=== PATIENT | female | born 1965 | race Caucasian/White ===

== ENCOUNTER → 2017-07-23 | Outpatient (CLI) | payer BC ==
--- NOTE | 2017-07-23 11:38 | WWHP ---
[facility] - HISTORY AND PHYSICAL DATE OF SERVICE: 07/23/2017 CHIEF COMPLAINT: The patient is here for her routine gynecologic exam and mammogram. HPI: This is a 51-year-old G3, P3 with an LMP of 05/2017. She states her periods have been slightly irregular during the past year, but have been mostly every month and during the past 6 months. She has gone up to 5 months without a period prior to that time. She denies any significant hot flashes, but does have mild hot flashes periodically. Her is status post vasectomy. PAST MEDICAL HISTORY: Chronic hypertension, seasonal allergies, and history of a kidney stone in the past. MEDICATIONS: 1. Benicar 5 mg daily. 2. Xanax 0.25 mg p.r.n. 3. Flonase daily at. ALLERGIES: SULFA. PAST SURGICAL HISTORY: Laparoscopic cholecystectomy 2012, endometrial ablation 2014, colonoscopy in 06/2017. She was advised to repeat this after 5 years. 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 She has no history of STDs. SOCIAL HISTORY: She denies tobacco, alcohol, and drug use. 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 FAMILY HISTORY: Unchanged from the 2015 H and P. REVIEW OF SYSTEMS: She has gained 4 pounds over the last year. She denies respiratory, cardiac or GI problems. PHYSICAL EXAM: Blood pressure 164/94, height 5 feet 5 inches, weight 210 pounds, BMI 35, temperature 96.4, pulse 87. This is a well-developed, heavyset white female, who is alert and oriented x3, in no acute distress. HEENT is within normal limits. NECK: Supple without mass or thyromegaly. CHEST AND LUNGS: Clear to auscultation. HEART: Regular rate and rhythm. Breasts are without mass or discharge. Axillary exam is negative for adenopathy. BACK: Negative for CVA tenderness. ABDOMEN: Mildly obese, soft, nontender, without palpable masses. PELVIC EXAM: Normal external genitalia. Cervix appears multiparous without lesions. Vagina appears normal. There is no evidence of prolapse. The uterus is multiparous, mid-position and nongravid size. There are no palpable adnexal masses or tenderness. Rectovaginal exam is negative for mass or tenderness and is negative for occult blood. EXTREMITIES: Nontender. IMPRESSION: 1. A 51-year-old female whose is status post vasectomy with normal gynecologic exam. 2. Probable perimenopause with intermittent menstrual irregularity. 3. Elevated blood pressure with history of chronic hypertension. PLAN: 1. Pap smear was performed. 2. Self breast examination was discussed. 3. Screening mammogram will be done today. 4. We have discussed her elevated blood pressure. She does do home blood pressure checks. I have recommended that she alternate the times of day when she does this since she has only been doing it at the calm times during the day. She will follow up with her primary care physician for blood pressure elevations. 5. Osteoporosis prevention was discussed. 6. She will keep a menstrual calendar and call if she is having menstrual problems or bleeding after 12 months of amenorrhea. 7. She will return in one year and p.r.n. JUDAH / SUZAN: [id number] /
--- NOTE | 2017-07-24 13:05 | MM ---
Reason for exam: screening (asymptomatic). Last mammogram was performed 1 year and 2 months ago. History: Took hormonal contraceptives for 8 years beginning at age 22. Physical Findings: A clinical breast exam by your physician is recommended on an annual basis and results should be correlated with mammographic findings. MG 3D Screening Mammo W/Cad Bilateral CC and MLO view(s) were taken. Prior study comparison: May 14, 2016, bilateral MG screening mammo w CAD. November 09, 2014, bilateral MG screening mammo w CAD. The breast tissue is heterogeneously dense. This may lower the sensitivity of mammography. There is no discrete abnormality. No significant changes when compared with prior studies. ASSESSMENT: Negative, BI-RAD 1 RECOMMENDATION: Routine screening mammogram of both breasts in 1 year.
== END | disposition home or self-care (01) ==
LOC: WWCWWP 09:47
PROVIDERS: ATTEND Obstetrics & Gynecology
DX: Z12.31 Encounter for screening mammogram for malignant neoplasm of breast (principal)
CPT/HCPCS: 77063; 77067

== ENCOUNTER → 2018-09-16 | Outpatient (CLI) | payer BC ==
[2018-09-16 08:17] VITALS: BP 188/123; PULSE 85; RESP 18; TEMP 97.9; BMI 34.4
--- NOTE | 2018-09-16 08:56 | P.HPOB ---
History of Present Illness H&P Date: 09/16/18 Chief Complaint: The patient is here for her routine gynecologic exam and ma mmogram. This is a 53-year-old G3 PIII with an LMP of December 2017. The patient states her menstrual periods became less frequent during the 12 months prior to her LMP. Her LPMP was at the end of 2017 and she believes she had only about 3 periods during the year prior to the LMP. The LMP was light and prolonged and lasted about 3 weeks. She has not had any bleeding since then. She has occasional mild warm flashes which are not bothersome. Review of Systems The patient has lost 3 pounds over the last year. She denies respiratory, cardiac, or G.I. problems. Past Medical History Past Medical History: Hypertension Additional Past Medical History / Comment(s): Seasonal allergies and history of kidney stone in the past. 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 History of hypermenorrhea improved with endometrial ablation. History of Any Multi-Drug Resistant Organisms: None Reported Past Surgical History: Cholecystectomy, Uterine Ablation Additional Past Surgical History / Comment(s): Endometrial ablation 2014. Co lonoscopy 2018(next 5 yrs). 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 - Past Family History Father Family Medical History: Cancer Additional Family Medical History / Comment(s): Bladder cancer and basal cell skin cancer. Medications and Allergies Home Medications Medication Instructions Recorded Confirmed Type ALPRAZolam [Xanax] 0.25 mg PO HS PRN 09/16/18 09/16/18 History Olmesartan [Benicar] 20 mg PO HS 09/16/18 09/16/18 History Allergies Allergy/AdvReac Type Severity Reaction Status Date / Time Sulfa (Sulfonamide AdvReac Severe hives Unverified 09/16/18 08:11 Antibiotics) Exam Vital Signs Temp Pulse Resp BP Pulse Ox 09/16/18 08:13 97.9 F 85 18 188/123 99 Intake and Output 09/15/18 09/16/18 09/16/18 22:59 06:59 14:59 Other: Weight 93.894 kg Repeat blood pressure 158/92. Height 5'5", weight 207 pounds, BMI 34.4. This is a well-developed well-nourished white female who is alert and oriented times 3 in no acute distress. HEENT: Within normal limits. NECK: Supple without mass or thyromegaly. CHEST AND LUNGS: Clear to auscultation. HEART: Regular rate and rhythm. BREASTS: Are without mass or discharge. AXILLARY EXAM: Negative for adenopathy. BACK: Negative for CVA tenderness. ABDOMEN: Soft, nontender, without palpable masses. PELVIC EXAM: Normal external genitalia. Cervix and vagina appear normal. There is no unusual discharge. There is no evidence of prolapse. The uterus is midposition, nongravid size and nontender. There are no palpable adnexal masses or tenderness. RECTAL EXAM: rectovaginal exam is negative for mass or tenderness and is nega tive for occult blood. EXTREMITIES: Nontender. IMPRESSION: 1. 53-year-old perimenopausal female with oligomenorrhea and normal gynecologic exam. 2. Elevated blood pressure with history of chronic hypertension. PLAN: 1. Pap smear was deferred since she had a normal one on 07/23/2017. 2. Self breast awareness was discussed with the patient. 3. Screening mammogram will be done today. 4. She has been checking her blood pressure at home on a regular basis and has been in the 120s over 80s. She will continue to check her own blood pressure and follow up with her primary care physician for blood pressure elevations. 5. Osteoporosis prevention was discussed. I have stressed the importance of adequate calcium, vitamin D and regular exercise. Recommended amounts of calcium and vitamin D were also discussed. 6. She will continue to keep the menstrual calendar. Chill, she is having menstrual problems or bleeding after 12 months of amenorrhea. 7.She was advised to return in one year for her annual well woman exam.
--- NOTE | 2018-09-17 11:16 | MM ---
Reason for exam: screening (asymptomatic). Last mammogram was performed 1 year and 2 months ago. History: Took hormonal contraceptives for 8 years beginning at age 22. Physical Findings: A clinical breast exam by your physician is recommended on an annual basis and results should be correlated with mammographic findings. MG 3D Screening Mammo W/Cad Bilateral CC and MLO view(s) were taken. Prior study comparison: July 23, 2017, bilateral MG 3d screening mammo w/cad. May 14, 2016, bilateral MG screening mammo w CAD. There are scattered fibroglandular densities. No significant changes when compared with prior studies. ASSESSMENT: Benign, BI-RAD 2 RECOMMENDATION: Routine screening mammogram of both breasts in 1 year.
== END ==
LOC: WWCWWP 07:50
PROVIDERS: ATTEND Obstetrics & Gynecology
DX: Z12.31 Encounter for screening mammogram for malignant neoplasm of breast (principal)
CPT/HCPCS: 77063; 77067

== ENCOUNTER 2018-11-28 19:20 | Emergency (ER) | payer BC ==
[2018-11-28] MEDS ORDERED: KETOROLAC 30 MG/ML 1 ML VIAL IM STA (19:44)
--- NOTE | 2018-11-28 20:11 | XR ---
EXAMINATION TYPE: XR knee complete RT DATE OF EXAM: 11/28/2018 COMPARISON: NONE HISTORY: Knee pain TECHNIQUE: 3 views FINDINGS: I see no fracture nor dislocation. Joint spaces are normal. There is no sign of any joint e ffusion. IMPRESSION: Negative right knee exam.
--- NOTE | 2018-11-28 20:13 | ED ---
General Adult HPI - General Chief complaint: Extremity Injury, Lower Stated complaint: Leg injury Time Seen by Provider: 11/28/18 19:38 Source: patient Mode of arrival: ambulatory Limitations: no limitations - History of Present Illness Initial comments: 53-year-old female patient presents to the emergency department today for evaluation of right knee pain and swelling. 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 Patient states over the last 24 hours the knee has become more swollen and painful. States that she has increased pain with attempting to flex the knee. States she is able to bear weight and is able to walk as long she keeps her knee straight. She denies any numbness or tingling to the leg. States she has been having any issues for the last several months and does have an appointment with clinical appeals specialist on Friday. She denies any previous known injury. Patient denies any headache, neck pain, back pain, chest pain, shortness of breath, dizziness, weakness, abdominal pain, nausea, vomiting, or difficulties with bowel movements or urination. - Related Data Home Medications Medication Instructions Recorded Confirmed ALPRAZolam [Xanax] 0.25 mg PO HS PRN 09/16/18 09/16/18 Olmesartan [Benicar] 20 mg PO HS 09/16/18 09/16/18 Previous Rx's Medication Instructions Recorded Naproxen [Naprosyn] 500 mg PO Q12HR #30 tab 11/28/18 Allergies Allergy/AdvReac Type Severity Reaction Status Date / Time Sulfa (Sulfonamide AdvReac Severe hives Verified 11/28/18 19:36 Antibiotics) Review of Systems ROS Statement: Those systems with pertinent positive or pertinent negative responses have been documented in the HPI. ROS Other: All systems not noted in ROS Statement are negative. Past Medical History Past Medical History: Hypertension Additional Past Medical History / Comment(s): Seasonal allergies and history of kidney stone in the past. 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 History of hypermenorrhea improved with endometrial ablation. History of Any Multi-Drug Resistant Organisms: None Reported Past Surgical History: Cholecystectomy, Uterine Ablation Additional Past Surgical History / Comment(s): Endometrial ablation 2014. Colonoscopy 2018(next 5 yrs). Past Psychological History: No Psychological Hx Reported Smoking Status: Never smoker Past Alcohol Use History: None Reported Past Drug Use History: None Reported - Past Family History Father Family Medical History: Cancer Additional Family Medical History / Comment(s): Bladder cancer and basal cell skin cancer. General Exam Limitations: no limitations General appearance: alert, in no apparent distress, other (This is a well- developed, well-nourished adult female patient in no acute distress. Vital signs upon presentation are temperature 99.0F, pulse 91, respirations 18, blood pressure 210/104, pulse ox 99% on room air.) Respiratory exam: Present: normal lung sounds bilaterally. Absent: respiratory distress, wheezes, rales, rhonchi, stridor Cardiovascular Exam: Present: regular rate, normal rhythm, normal heart sounds. Absent: systolic murmur, diastolic murmur, rubs, gallop, clicks GI/Abdominal exam: Present: soft, normal bowel sounds. Absent: distended, tenderness, guarding, rebound, rigid Extremities exam: Present: full ROM, normal capillary refill, other. Absent: normal inspection, tenderness, pedal edema, joint swelling (Swelling surrounding the right knee. Skin is pink, warm, dry. Cap refills less than 3 seconds. Pedal and posttibial pulses 2+ and equal bilaterally.), calf tenderness Neurological exam: Present: alert, oriented X3, CN II-XII intact Psychiatric exam: Present: normal affect, normal mood Skin exam: Present: warm, dry, intact, normal color. Absent: rash Course Vital Signs 11/28/18 19:33 Temperature 99.0 F Pulse Rate 91 Respiratory 18 Rate Blood Pressure 210/104 O2 Sat by Pulse 99 Oximetry Medical Decision Making - Medical Decision Making 53-year-old female patient presents to the emergency department today for evaluation of right knee pain. States she's been having problems with the knee for the last few months however yesterday stepped sideways felt a snapping sensation. Patient states she's had increased pain and swelling since. X-ray was negative. The emergency department. Neurovascular status is intact. She denies any dislocation type injury. She'll be discharged home with Vern wrap in place. She'll be given naproxen for pain control. She is instructed to rest, elevate the knee. She is instructed to follow-up with orthopedics if she has planned on Friday. Return parameters discussed in detail. She verbalizes understanding and agrees this plan. - Radiology Data Radiology results: report reviewed, image reviewed 3 views of the right knee is obtained. Report was reviewed in its entirety. Impression by Dr. Alan shows negative right knee exam. Disposition Clinical Impression: Strain of right knee Disposition: HOME SELF-CARE Condition: Good Instructions (If sedation given, give patient instructions): Knee Pain (ED) Additional Instructions: Wear vern wrap for comfort and support. Take medication as directed. Rest and elevate the knee, apply ice 20 minutes at a time at least 4 times per day. Keep appointment with your clinical appeals specialist as you have planned. Return to the emergency department immediately for any new, worsening, or concerning symptoms. Prescriptions: Naproxen [Naprosyn] 500 mg PO Q12HR #30 tab Is patient prescribed a controlled substance at d/c from ED?: No Referrals: Antonio Estevez MD [Primary Care Provider] - 1-2 days Time of Disposition: 20:26
[2018-11-28 20:50] VITALS: TEMP 98.4
[2018-11-28 20:51] VITALS: BP 191/102; PULSE 83; RESP 19
== END 2018-11-28 20:53 | disposition home or self-care (01) ==
LOC: EC 19:20
DX: S86.911A Strain of unspecified muscle(s) and tendon(s) at lower leg level, right leg, initial encounter (principal); I10 Essential (primary) hypertension; Z79.899 Other long term (current) drug therapy; Z88.2 Allergy status to sulfonamides; Y93.68 Activity, volleyball (beach) (court)
CPT/HCPCS: 73562; 99283; 96372; J1885

== ENCOUNTER → 2020-06-20 | Outpatient (CLI) | payer BC ==
[2020-06-20 09:39] VITALS: BP 180/122; PULSE 85; RESP 20; TEMP 98.1
--- NOTE | 2020-06-20 10:20 | P.HPOB ---
History of Present Illness H&P Date: 06/20/20 Chief Complaint: The patient is here for her routine gynecologic exam and ma mmogram. This is a 54-year-old with an LMP of October 2019. The patient's is status post vasectomy. She states her menstrual periods continue to become less frequent. She has occasional hot flashes which are not consistent and not very severe. She believes vitamin D supplements seem to make hot flashes worse. She is otherwise without complaints. Review of Systems The patient has gained 8 pounds over the last year. She denies respiratory, cardiac, or G.I. problems. Past Medical History Past Medical History: Hypertension Additional Past Medical History / Comment(s): Seasonal allergies and history of kidney stone in the past. 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 History of Any Multi-Drug Resistant Organisms: None Reported Past Surgical History: Cholecystectomy, Uterine Ablation Additional Past Surgical History / Comment(s): Endometrial ablation 2014. Colonoscopy 2018(next 5 yrs). 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 - Past Family History Father Family Medical History: Cancer Additional Family Medical History / Comment(s): Bladder cancer and basal cell skin cancer. Son(s) Family Medical History: Cancer Additional Family Medical History / Comment(s): Lymphoma. Medications and Allergies Home Medications Medication Instructions Recorded Confirmed Type ALPRAZolam [Xanax] 0.25 mg PO HS PRN 09/16/18 06/20/20 History Olmesartan [Benicar] 20 mg PO HS 09/16/18 06/20/20 History Fluticasone Nasal [place] [Flonase 2 spr EA NOSTRIL DAILY 06/20/20 06/20/20 History Nasal [place]] Loratadine [Claritin] 10 mg PO DAILY 06/20/20 06/20/20 History Allergies Allergy/AdvReac Type Severity Reaction Status Date / Time Sulfa (Sulfonamide AdvReac Severe hives Verified 06/20/20 09:31 Antibiotics) Exam Vital Signs Temp Pulse Resp BP Pulse Ox 06/20/20 09:33 98.1 F 85 20 180/122 100 Intake and Output 06/19/20 06/20/20 06/20/20 22:59 06:59 14:59 Other: Weight 97.522 kg Repeat blood pressure from the right arm: 152/98. Height 5 feet 6 inches, weight 215 pounds, BMI 34.7. This is a well-developed well-nourished white female who is alert and oriented times 3 in no acute distress. HEENT: Within normal limits. NECK: Supple without mass or thyromegaly. CHEST AND LUNGS: Clear to auscultation. HEART: Regular rate and rhythm. BREASTS: Are without mass or discharge. AXILLARY EXAM: Negative for adenopathy. BACK: Negative for CVA tenderness. ABDOMEN: Soft, nontender, without palpable masses. PELVIC EXAM: Normal external genitalia. Cervix and vagina appear normal. There is no unusual discharge. There is no evidence of prolapse. The uterus is midposition, nongravid size and nontender. There are no palpable adnexal masses or tenderness. RECTAL EXAM: Rectovaginal exam is negative for mass or tenderness and is negative for occult blood. EXTREMITIES: Nontender. IMPRESSION: 1. 54-year-old perimenopausal female with oligomenorrhea and intermittent mild vasomotor symptoms whose is status post vasectomy with normal gynecologic exam 2. Elevated blood pressure with history of chronic hypertension. PLAN: 1. Pap smear cotest was performed. 2. Self breast awareness was discussed with the patient. 3. Screening mammogram will be done today. 4. We have discussed her elevated blood pressure. I have recommended that she check her blood pressure at home on a regular basis since she does have a blood pressure cuff. She will keep a log of her blood pressures and follow up with her PCP for blood pressure elevations. 5. Osteoporosis prevention was discussed. I have stressed the importance of adequate calcium, vitamin D and regular exercise. Recommended amounts of calcium and vitamin D were also discussed. 6. She will keep a menstrual calendar and call if she is having menstrual problems or if she has vaginal bleeding after 12 months of amenorrhea. 7. She was advised to return in one year for her annual well woman exam.
--- NOTE | 2020-06-21 13:25 | MM ---
Reason for exam: screening (asymptomatic). Last mammogram was performed 1 year and 9 months ago. History: Patient is postmenopausal. Took hormonal contraceptives for 8 years beginning at age 22. Physical Findings: A clinical breast exam by your physician is recommended on an annual basis and results should be correlated with mammographic findings. MG 3D Screening Mammo W/Cad Bilateral CC and MLO view(s) were taken. Prior study comparison: September 16, 2018, bilateral MG 3d screening mammo w/cad. July 23, 2017, bilateral MG 3d screening mammo w/cad. There are scattered fibroglandular densities. There are benign appearing round, grouped calcifications in the left breast. There is no discrete abnormality. ASSESSMENT: Benign, BI-RAD 2 RECOMMENDATION: Routine screening mammogram of both breasts in 1 year.
--- NOTE | 2020-06-28 12:43 | P.PN ---
Progress Note - Text Progress Note Date: 06/28/20 OUTPATIENT FOLLOW-UP NOTE TEST(S)/RESULTS: test results from 06/20/2020 include negative Pap smear cotest and benign mammogram. METHOD OF NOTIFICATION: the patient was notified by phone. PATIENT COMMENTS: the patient is happy to hear these results. DIAGNOSIS: negative Pap smear cotest and benign mammogram. DISCUSSION: PLAN: the patient is to return in one year for her annual well woman exam.
== END | disposition home or self-care (01) ==
LOC: WWCWWP 09:21
PROVIDERS: ATTEND Obstetrics & Gynecology
DX: Z12.31 Encounter for screening mammogram for malignant neoplasm of breast (principal)
CPT/HCPCS: 77063; 77067

== ENCOUNTER → 2021-09-19 | Outpatient (CLI) | payer BC ==
[2021-09-19 08:08] VITALS: BP 180/98; PULSE 106; RESP 17; TEMP 98.1
--- NOTE | 2021-09-19 08:43 | P.HPOB ---
History of Present Illness H&P Date: 09/19/21 Chief Complaint: The patient is here for her routine gynecologic exam and ma mmogram. This is a 56-year-old with an LMP of 10/2019. The patient states she has less hot flashes and they are not bothersome. She is without gynecologic complaints. She denies any postmenopausal bleeding. Review of Systems The patient has lost 2 pounds over the last year. She denies respiratory, cardiac, or G.I. problems. Past Medical History Past Medical History: Hypertension Additional Past Medical History / Comment(s): Seasonal allergies and history of kidney stone in the past. 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 History of Any Multi-Drug Resistant Organisms: None Reported Past Surgical History: Cholecystectomy, Uterine Ablation Additional Past Surgical History / Comment(s): Endometrial ablation 2014. Colonoscopy 2018(next 5 yrs). 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 - Past Family History Father Family Medical History: Cancer Additional Family Medical History / Comment(s): Bladder cancer and basal cell skin cancer. Son(s) Family Medical History: Cancer Additional Family Medical History / Comment(s): Lymphoma. Medications and Allergies Home Medications Medication Instructions Recorded Confirmed Type ALPRAZolam [Xanax] 0.25 mg PO HS PRN 09/16/18 06/20/20 History Olmesartan [Benicar] 20 mg PO HS 09/16/18 06/20/20 History Fluticasone Nasal [place] [Flonase 2 spr EA NOSTRIL DAILY 06/20/20 06/20/20 History Nasal [place]] Loratadine [Claritin] 10 mg PO DAILY 06/20/20 06/20/20 History Allergies Allergy/AdvReac Type Severity Reaction Status Date / Time Sulfa (Sulfonamide AdvReac Severe hives Verified 09/19/21 08:03 Antibiotics) Exam Vital Signs Temp Pulse Resp BP Pulse Ox 09/19/21 08:04 98.1 F 106 H 17 180/98 95 Intake and Output 09/18/21 09/19/21 09/19/21 22:59 06:59 14:59 Other: Weight 96.615 kg Height 5 feet 5 inches, weight 213 pounds, BMI 35.4. This is a well-developed well-nourished white female who is alert and oriented times 3 in no acute distress. HEENT: Within normal limits. NECK: Supple without mass or thyromegaly. CHEST AND LUNGS: Clear to auscultation. HEART: Mild tachycardia with regular rhythm. BREASTS: Are without mass or discharge. AXILLARY EXAM: Negative for adenopathy. BACK: Negative for CVA tenderness. ABDOMEN: Soft, nontender, without palpable masses. PELVIC EXAM: Normal external genitalia with mild atrophy. Cervix and vagina appear normal with minimal atrophy. There is no unusual discharge. There is no evidence of prolapse. The uterus is midposition, nongravid size and nontender. There are no palpable adnexal masses or tenderness. RECTAL EXAM: Rectovaginal exam is negative for mass or tenderness and is negative for occult blood. EXTREMITIES: Nontender. IMPRESSION: 1. 56-year-old menopausal female with normal gynecologic exam. 2. Elevated blood pressure with history of chronic hypertension. PLAN: 1. Pap smear was deferred since she had a normal Pap smear cotest on 06/20/2020. 2. Self breast awareness was discussed with the patient. We have also discussed symptoms associated with inflammatory breast cancer. 3. Screening mammogram will be done today. 4. Osteoporosis prevention was discussed. 5. We have discussed her elevated blood pressure. I have stressed the importance of regular blood pressure checks. I have recommended home blood pressure checks and I have recommended that she follow up with her PCP regarding elevated blood pressures. We have also discussed the importance of regular exercise and low sodium diet. 6. She has completed her Covid vaccination series and has received a booster. 7. Now that she has been amenorrheic for more than one year, she understands that any vaginal bleeding should be considered abnormal and she should notify me if this happens. 8. She was advised to return in one year for her annual well woman exam.
--- NOTE | 2021-09-20 13:09 | MM ---
Reason for exam: screening (asymptomatic). Last mammogram was performed 1 year and 3 months ago. History: Patient is postmenopausal. Took hormonal contraceptives for 8 years beginning at age 22. Physical Findings: A clinical breast exam by your physician is recommended on an annual basis and results should be correlated with mammographic findings. MG 3D Screening Mammo W/Cad Bilateral CC and MLO view(s) were taken. Prior study comparison: June 20, 2020, bilateral MG 3d screening mammo w/cad. September 16, 2018, bilateral MG 3d screening mammo w/cad. There are benign appearing round calcifications bilaterally. There is chronic nodularity in the left breast. New indistinct grouped calcifications left upper outer quadrant middle depth. ASSESSMENT: Incomplete: need additional imaging evaluation, BI-RAD 0 RECOMMENDATION: Special view mammogram of the left breast. [facility] will attempt to contact patient to return for supplemental views.
== END ==
LOC: WWCWWP 07:53
PROVIDERS: ATTEND Obstetrics & Gynecology
DX: Z12.31 Encounter for screening mammogram for malignant neoplasm of breast (principal); Z01.419 Encounter for gynecological examination (general) (routine) without abnormal findings; I10 Essential (primary) hypertension; Z78.0 Asymptomatic menopausal state; Z88.2 Allergy status to sulfonamides
CPT/HCPCS: 77063; 77067

== ENCOUNTER → 2021-09-21 | Outpatient (CLI) | payer BC ==
--- NOTE | 2021-09-24 09:29 | MM ---
Reason for exam: additional evaluation requested from abnormal screening. Last mammogram was performed less than 1 month ago. History: Patient is postmenopausal. Took hormonal contraceptives for 8 years beginning at age 22. Physical Findings: A clinical breast exam by your physician is recommended on an annual basis and results should be correlated with mammographic findings. MG 3D Work Up W/Cad LT ML with magnification, CC with magnification, and ML view(s) were taken of the left breast. Prior study comparison: September 19, 2021, bilateral MG 3d screening mammo w/cad. June 20, 2020, bilateral MG 3d screening mammo w/cad. There are scattered fibroglandular densities. There is no discrete abnormality. ASSESSMENT: Benign, BI-RAD 2 RECOMMENDATION: Return to routine screening mammogram schedule for both breasts.
== END | disposition home or self-care (01) ==
LOC: RADMAMWWP 14:51
PROVIDERS: ATTEND Obstetrics & Gynecology
DX: R92.8 Other abnormal and inconclusive findings on diagnostic imaging of breast (principal); Z78.0 Asymptomatic menopausal state
CPT/HCPCS: 77061; 77065

== ENCOUNTER → 2022-11-13 | Outpatient (CLI) | payer BC ==
[2022-11-13 10:47] VITALS: PULSE 99; RESP 16; TEMP 98
--- NOTE | 2022-11-13 11:47 | P.HPOB ---
History of Present Illness H&P Date: 11/13/22 Chief Complaint: The patient is here for her routine gynecologic exam and ma mmogram. This is a 57-year-old with an LMP of 2019. The patient noticed a slight skin change at the lateral aspect of the left breast and was wondering if this was the orange peel kind of changes noticed with inflammatory breast cancer. She is otherwise without complaints and denies any postmenopausal bleeding. Review of Systems The patient's weight has been stable over the last year. She denies respiratory, cardiac, or G.I. problems. Past Medical History Past Medical History: Hypertension Additional Past Medical History / Comment(s): Seasonal allergies and history of kidney stone in the past. 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 History of Any Multi-Drug Resistant Organisms: None Reported Past Surgical History: Cholecystectomy, Uterine Ablation Additional Past Surgical History / Comment(s): Endometrial ablation 2014. Colonoscopy 2018(next 5 yrs). 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 - Past Family History Father Family Medical History: Cancer Additional Family Medical History / Comment(s): Bladder cancer and basal cell skin cancer. Son(s) Family Medical History: Cancer Additional Family Medical History / Comment(s): Lymphoma. Medications and Allergies Home Medications Medication Instructions Recorded Confirmed Type ALPRAZolam [Xanax] 0.25 mg PO HS PRN 09/16/18 11/13/22 History Olmesartan [Benicar] 20 mg PO HS 09/16/18 11/13/22 History Fluticasone Nasal [place] [Flonase 2 spr EA NOSTRIL DAILY 06/20/20 11/13/22 History Nasal [place]] Loratadine [Claritin] 10 mg PO DAILY 06/20/20 11/13/22 History Cholecalciferol [Vitamin D3 (25 25 mcg PO DAILY 11/13/22 11/13/22 History Mcg = 1000 Iu)] amLODIPine [Norvasc] 2.5 mg PO DAILY 11/13/22 11/13/22 History Allergies Allergy/AdvReac Type Severity Reaction Status Date / Time Sulfa (Sulfonamide AdvReac Severe hives Verified 11/13/22 10:43 Antibiotics) Exam Vital Signs Temp Pulse Resp Pulse Ox 11/13/22 10:44 98 F 99 16 97 Intake and Output 11/12/22 11/13/22 11/13/22 22:59 06:59 14:59 Other: Weight 96.615 kg Blood pressure 178/102. Height 5 feet 5 inches, weight 213 pounds, BMI 35.4. This is a well-developed well-nourished white female who is alert and oriented times 3 in no acute distress. HEENT: Within normal limits. NECK: Supple without mass or thyromegaly. CHEST AND LUNGS: Clear to auscultation. HEART: Regular rate and rhythm. BREASTS: Are without mass or discharge. There are slight stretch almodovar on the lateral aspect of the left breast which appear completely benign. They are noninflamed. These are soft and nontender. She understands that these are not consistent with the changes that are seen with inflammatory breast cancer. AXILLARY EXAM: Negative for adenopathy. BACK: Negative for CVA tenderness. ABDOMEN: Soft, nontender, without palpable masses. PELVIC EXAM: Normal external genitalia with mild atrophy. Cervix and vagina appear normal with mild atrophy. There is no unusual discharge. There is no evidence of prolapse. The uterus is midposition, nongravid size and nontender. There are no palpable adnexal masses or tenderness. RECTAL EXAM: Rectovaginal exam is negative for mass or tenderness and is negative for occult blood. EXTREMITIES: Nontender. IMPRESSION: 1. 57-year-old menopausal female with normal gynecologic exam. 2. Benign-appearing stretch almodovar on the left breast. 3. Elevated blood pressure with history of chronic hypertension on antihypertensive medications. PLAN: 1. Pap smear was deferred since she had a negative Pap smear cotest on 06/20/2020. 2. Self breast awareness was discussed with the patient. We have also discussed symptoms associated with inflammatory breast cancer. I have reassured the patient that the skin findings are not consistent with inflammatory breast cancer. 3. Screening mammogram will be done today. 4. Osteoporosis prevention was discussed. I have stressed the importance of adequate calcium, vitamin D and regular exercise. Recommended amounts of calcium and vitamin D were also discussed. 5. Discussed her elevated blood pressure. She states her blood pressure is usually elevated when she sees a doctor. She does have a blood pressure cuff at home and I have recommended that she check her own blood pressure on a regular basis at various times during the day. She will follow-up with her PCP for blood pressure elevations. 6. She states she is due for a colonoscopy this year and will arrange this through her PCP. 7. She was advised to return in one year for her annual well woman exam.
--- NOTE | 2022-11-14 20:08 | MM ---
Reason for Exam: Screening (asymptomatic). Last mammogram was performed 1 year(s) and 2 month(s) ago. Patient History: Menarche at age 11. First Full-Term at age 25. Postmenopausal. Hormonal Contraceptives for 8 years from age 22 until age 30. Risk Values: Ya 5 year model risk: 1.6%. NCI Lifetime model risk: 9.5%. Prior Study Comparison: 06/20/2020 Bilateral Screening Mammogram, [facility]. 09/19/2021 Bilateral Screening Mammogram, [facility]. 09/21/2021 Left Diagnostic Mammogram, [facility]. Tissue Density: There are scattered fibroglandular densities. Findings: Analyzed By CAD. A couple of groups of microcalcifications upper outer quadrant left breast middle depth are redemonstrated. The more posterior group appears to be increasing. Further magnification views are recommended to reassess. Some central nodularity on the left cc view is more defined than prior exams but appears unchanged when comparing to prior exams on the MLO view. Otherwise, no significant change. Overall Assessment: Incomplete: need additional imaging evaluation, BI-RAD 0 Management: Special View Mammogram of the left breast. Magnification views for the more posterior group of calcifications which appears to be increasing. [facility] will attempt to contact patient to return for supplemental views and ultrasound if indicated. Electronically signed and approved by: Ramonita Cornejo M.D. Radiologist
== END ==
LOC: WWCWWP 10:24
PROVIDERS: ATTEND Obstetrics & Gynecology
DX: Z12.31 Encounter for screening mammogram for malignant neoplasm of breast (principal); I10 Essential (primary) hypertension; Z88.2 Allergy status to sulfonamides; Z85.3 Personal history of malignant neoplasm of breast; Z79.899 Other long term (current) drug therapy; N64.59 Other signs and symptoms in breast; Z78.0 Asymptomatic menopausal state; Z01.411 Encounter for gynecological examination (general) (routine) with abnormal findings
CPT/HCPCS: 77063; 77067

== ENCOUNTER → 2022-11-19 | Outpatient (CLI) | payer BC ==
--- NOTE | 2022-11-19 15:25 | MM ---
Reason for Exam: Additional evaluation requested from abnormal screening. Last screening mammogram was performed less than 1 month ago. Patient History: Menarche at age 11. First Full-Term at age 25. Postmenopausal. Hormonal Contraceptives for 8 years from age 22 until age 30. Risk Values: Ya 5 year model risk: 1.6%. NCI Lifetime model risk: 9.5%. Prior Study Comparison: 09/19/2021 Bilateral Screening Mammogram, [facility]. 09/21/2021 Left Diagnostic Mammogram, [facility]. 11/13/2022 Bilateral MG 3D screening mammo w/cad, [facility]. Tissue Density: Left: There are scattered fibroglandular densities. Findings: Analyzed By CAD. Chronic nodularity within the left breast. No new suspicious mass. Punctate round grouped calcifications demonstrated within the upper outer quadrant of the left breast at middle depth. These appear benign. There is amorphous grouped calcifications within the upper outer quadrant of the right breast posteriorly. These are suspicious. Overall Assessment: Suspicious, BI-RAD 4 Management: Stereotactic Core Biopsy of the left breast. A clinical breast exam by your physician is recommended on an annual basis and results should be correlated with mammographic findings. This exam should not preclude additional follow-up of suspicious palpable abnormalities. Results were given to the patient verbally at the time of exam. Note on Ya scores and lifetime risk: 1. A Ya score greater than 3% is considered moderate risk. If this is the case, consider specialist referral to assess eligibility for a risk reducing agent. If overall lifetime risk for the development of breast cancer is 20% or higher, the patient may qualify for future screening with alternating mammogram and breast MRI. Electronically signed and approved by: Jordan Stewart D.O.
== END | disposition home or self-care (01) ==
LOC: RADMAMWWP 14:56
PROVIDERS: ATTEND Obstetrics & Gynecology
DX: R92.8 Other abnormal and inconclusive findings on diagnostic imaging of breast (principal); Z78.0 Asymptomatic menopausal state
CPT/HCPCS: 77061; 77065

== ENCOUNTER → 2022-11-28 | Day surgery (SDC) | payer BC ==
--- NOTE | 2022-12-05 09:14 | MM ---
Risk Values: Ya 5 year model risk: 1.6%. NCI Lifetime model risk: 9.5%. Prior Study Comparison: 09/21/2021 Left Diagnostic Mammogram, [facility]. 11/13/2022 Bilateral MG 3D screening mammo w/cad, [facility]. 11/19/2022 Left MG 3D work up w/cad , [facility]. Pathology Description: Location: posterior. Marker Left Behind. Specimen Radiograph. Calcium Found: Yes Approach: Lateral to Medial Needle Type: Eviva Cores: 2 Skin Nicks: 1 Gauge: 9 The procedure of stereotactic guided core biopsy was explained to the patient. Benefits, alternatives, and risks were discussed. An informed consent was then obtained. The shortness pathway for biopsy was chosen. Shortness pathway was a lateral approach. I performed the localization followed by the remainder of the procedure. A vacuum assisted biopsy gun was used to obtain 2 core samples. The more posteriorly located lateral calcifications were targeted for biopsy. The patient tolerated the procedure well without any immediate complication. The patient was kept in the radiology department for short stay after the procedure and then discharged home in stable condition. Targeted calcifications are identified in specimen mammogram. Post biopsy mammogram shows the clip to appear in satisfactory position relative to the targeted area of concern on the preprocedure images. Impression: SUCCESSFUL, UNCOMPLICATED STEREOTACTIC GUIDED CORE BIOPSY OF LATERAL MICROCALCIFICATIONS, THE MORE POSTERIOR GROUP OF CONCERN IN THE LEFT BREAST. Pathology Results: Result: Benign, Fibrocystic change. LEFT BREAST, STEREOTACTIC CORE BIOPSY: Benign breast tissue with fibrocystic change, sclerosing adenosis, focal microcalcification and focal mild usual ductal hyperplasia (see note). Notes In order to confirm a benign diagnosis, immunohistochemistry with smooth muscle myosin heavy chain is performed with appropriate controls on the tissue block. Myosin heavy chain stain is positive within myoepithelial cells surrounding ductal structures, which supports a benign diagnosis. Overall Assessment: Benign Management: Diagnostic Mammogram of the left breast in 6 months. Electronically signed and approved by: Ramonita Cornejo M.D. Radiologist
== END ==
LOC: RADMAMWWP 10:10
PROVIDERS: ATTEND Surgery
DX: N60.22 Fibroadenosis of left breast (principal); N60.12 Diffuse cystic mastopathy of left breast
CPT/HCPCS: 88305; 88342; 19081; A4648

== ENCOUNTER → 2022-12-06 | Outpatient (CLI) | payer BC ==
[2022-12-06 08:51] VITALS: BP 179/100; PULSE 84; RESP 18; TEMP 98.3
--- NOTE | 2022-12-06 09:42 | P.GSHP ---
History of Present Illness H&P Date: 12/06/22 Chief Complaint: fibrocystic breast changes Steffi is a 57 year old white female status post left breast stero biopsy on 11-28-22. Her results were benign and concordant. Reviewed personally with Dr. Mon. This was the result of a bilateral mammogram done on 11-13-22. She had 2 areas of calcification the more posterior was more prominent than last year and this is the area that was biopsied. Nothing of concern was noted in the right breast. The patient herself does not feel any lumps masses or nodules of concern in either breast. Nothing of concern was identified in the right breast. Has not had any surgery on her breast in the past prior to this. She has not had any recent trauma or infection of the breast. She is not complaining of any skin changes or nipple discharge. Caffeine:none nicotine: none, her patents smoked until she was a teen chocolate: daily Family History: father: bladder cancer son: lymphoma is now cancer free Hormonal History: menarche: 11 , breast fed: yes, age at first : 25 menopause: 55 hormones: none BCP: used until 30 about 8 years Surgical History: gallbladder kidney stone Medical History: HTN Social History: nicotine: as above alcohol: none drugs: none - Constitutional Constitutional: Denies chills, Denies fever - EENT Eyes: denies blurred vision, denies pain Ears: deny: decreased hearing, tinnitus Ears, nose, mouth and throat: Denies headache, Denies sore throat - Breasts Breasts: bilateral: as per HPI - Cardiovascular Cardiovascular: Denies chest pain, Denies shortness of breath - Respiratory Respiratory: Denies cough, Denies 7 - Gastrointestinal Gastrointestinal: Denies abdominal pain, Denies diarrhea, Denies nausea, Denies vomiting - Genitourinary (Female) Genitourinary: Reports kidney stones, Denies dysuria, Denies hematuria - Menstruation Menstruation: Reports postmenopausal - Musculoskeletal Musculoskeletal: Denies myalgias - Integumentary Comment: follow with dermatology Integumentary: Reports pruritus, Denies rash - Neurological Neurological: Denies numbness, Denies weakness - Psychiatric Psychiatric: Reports anxiety, Denies depression - Endocrine Endocrine: Denies fatigue, Denies weight change - Hematologic/Lymphatic Comment: none - Allergic/Immunologic Allergic/Immunologic: Reports seasonal allergies Past Medical History Past Medical History: Hypertension Additional Past Medical History / Comment(s): Seasonal allergies and history of kidney stone in the past. 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 History of Any Multi-Drug Resistant Organisms: None Reported Past Surgical History: Cholecystectomy, Uterine Ablation Additional Past Surgical History / Comment(s): Endometrial ablation 2015. Colonoscopy 2018(next 5 yrs). Past Anesthesia/Blood Transfusion Reactions: No Reported Reaction Past Psychological History: No Psychological Hx Reported Smoking Status: Never smoker Past Alcohol Use History: None Reported Past Drug Use History: None Reported - Past Family History Father Family Medical History: Cancer Additional Family Medical History / Comment(s): Bladder cancer and basal cell skin cancer. Son(s) Family Medical History: Cancer Additional Family Medical History / Comment(s): Lymphoma. Medications and Allergies Home Medications Medication Instructions Recorded Confirmed Type ALPRAZolam [Xanax] 0.25 mg PO HS PRN 09/16/18 12/06/22 History Olmesartan [Benicar] 20 mg PO HS 09/16/18 12/06/22 History Fluticasone Nasal [place] [Flonase 2 spr EA NOSTRIL DAILY 06/20/20 12/06/22 History Nasal [place]] Loratadine [Claritin] 10 mg PO DAILY 06/20/20 12/06/22 History Cholecalciferol [Vitamin D3 (25 25 mcg PO DAILY 11/13/22 12/06/22 History Mcg = 1000 Iu)] amLODIPine [Norvasc] 2.5 mg PO DAILY 11/13/22 12/06/22 History Allergies Allergy/AdvReac Type Severity Reaction Status Date / Time Sulfa (Sulfonamide AdvReac Severe hives Verified 12/06/22 08:46 Antibiotics) Surgical - Exam Vital Signs Temp Pulse Resp BP Pulse Ox 98.3 F 84 18 179/100 99 12/06/22 08:48 12/06/22 08:48 12/06/22 08:48 12/06/22 08:48 12/06/22 08:48 - General no distress - Eyes normal ocular movement - Neck trachea midline - Respiratory normal respiratory effort, clear to auscultation - Cardiovascular Rhythm: regular Heart Sounds: normal: S1, S2 - Abdomen Abdomen: soft, non tender, no guarding, no rigid, no rebound - Integumentary normal turgor - Neurologic no disoriented, no combative - Musculoskeletal normal gait - Psychiatric oriented to time, oriented to person, oriented to place, speech is normal, memory intact Breast Exam: BRA: 42D inspection: Bilateral grade 2/3 ptosis Palpation: Right breast: Multi-positional exam fibrocystic changes no dominant masses or nodules of concern Right axilla: No adenopathy of concern Left breast: Multi-positional exam, fibrocystic changes, no dominant masses or nodules of concern, biopsy site clean and dry no evidence of infection Left breast slightly larger than right breast Left axilla: No adenopathy of concern Results Mammogram reviewed with radiology Dr. Olivarez Assessment and Plan Assessment: Impression: Radiographic abnormality left breast status post area biopsy benign and concordant Fibrocystic breast changes Hypertension Plan: Repeat left breast mammogram in 6 months with a physician exam at that time Patient to follow up sooner any questions or concerns Upon review of the mammograms there were 2 areas of calcification the one most posterior was felt to be the more suspicious in the substernal one that was targeted and was benign concordant. After review with radiology it is felt that the more anterior lesion can be followed conservatively and the patient will have a repeat mammogram in 6 months. Patient understands and will be seen again at that time. CC: Dr. Tesfaye
== END ==
LOC: WWCWWP 08:36
PROVIDERS: ATTEND Surgery
DX: N60.11 Diffuse cystic mastopathy of right breast (principal); I10 Essential (primary) hypertension; Z88.2 Allergy status to sulfonamides; Z88.1 Allergy status to other antibiotic agents

== ENCOUNTER → 2023-03-31 | Outpatient (CLI) | payer BC ==
--- NOTE | 2023-03-31 08:41 | MM ---
Reason for Exam: Hx of benign breast biopsy. Last screening mammogram was performed 4 month(s) ago. Patient History: Menarche at age 11. First Full-Term at age 25. Postmenopausal. Hormonal Contraceptives for 8 years from age 22 until age 30. 11/28/2022, Benign MG stereo VAD BX LT on the left side. Risk Values: Ya 5 year model risk: 1.9%. NCI Lifetime model risk: 11.1%. Prior Study Comparison: 09/21/2021 Left Diagnostic Mammogram, [facility]. 11/13/2022 Bilateral MG 3D screening mammo w/cad, [facility]. 11/19/2022 Left MG 3D work up w/cad LT, [facility]. Tissue Density: Left: The breast tissue is almost entirely fat. Findings: Analyzed By CAD. Left breast biopsy clip. Similar-appearing scattered benign-appearing calcifications. No new suspicious masses, calcifications or distortions. Overall Assessment: Benign, BI-RAD 2 Management: Screening Mammogram of both breasts in 1 year. Results were given to the patient verbally at the time of exam. Patient should continue monthly self-breast exams. A clinical breast exam by your physician is recommended on an annual basis. This exam should not preclude additional follow-up of suspicious palpable abnormalities. Note on Ya scores and lifetime risk: 1. A Ya score greater than 3% is considered moderate risk. If this is the case, consider specialist referral to assess eligibility for a risk reducing agent. 2. If overall lifetime risk for the development of breast cancer is 20% or higher, the patient may qualify for future screening with alternating mammogram and breast MRI. Electronically signed and approved by: García Jacobson DO
== END | disposition home or self-care (01) ==
LOC: RADMAMWWP 08:21
PROVIDERS: ATTEND Surgery
DX: R92.312 Mammographic fatty tissue density, left breast (principal); Z78.0 Asymptomatic menopausal state
CPT/HCPCS: 77061; 77065

== ENCOUNTER → 2023-04-02 | Outpatient (CLI) | payer BC ==
[2023-04-02 08:23] VITALS: BP 166/85; PULSE 80; RESP 17; TEMP 97.9
--- NOTE | 2023-04-02 08:35 | P.PN ---
Subjective Progress Note Date: 04/02/23 fibrocystic breast changes Steffi is a 57 year old white female status post left breast stero biopsy on 11-28-22. Her results were benign and concordant. Reviewed personally with Dr. Mon at that time. This was the result of a bilateral mammogram done on 11-13-22. She had 2 areas of calcification the more posterior was more prominent than last year and this is the area that was biopsied. Nothing of concern was noted in the right breast. The patient herself does not feel any lumps masses or nodules of concern in either breast. Nothing of concern was identified in the right breast. Has not had any surgery on her breast in the past prior to this. She has not had any recent trauma or infection of the breast. She is not complaining of any skin changes or nipple discharge. Plan repeat left breast diagnostic mammogram on [id number] this was benign BIRAD 2. Any new lumps masses or nodules of concern in either breast. Caffeine:none nicotine: none, her patents smoked until she was a teen chocolate: daily Family History: father: bladder cancer son: lymphoma is now cancer free Hormonal History: menarche: 11 , breast fed: yes, age at first : 25 menopause: 55 hormones: none BCP: used until 30 about 8 years Surgical History: gallbladder kidney stone Medical History: HTN Social History: nicotine: as above alcohol: none drugs: none - Constitutional Constitutional: Denies chills, Denies fever - EENT Eyes: denies blurred vision, denies pain Ears: deny: decreased hearing, tinnitus Ears, nose, mouth and throat: Denies headache, Denies sore throat - Breasts Breasts: bilateral: as per HPI - Cardiovascular Cardiovascular: Denies chest pain, Denies shortness of breath - Respiratory Respiratory: Denies cough - Gastrointestinal Gastrointestinal: Denies abdominal pain, Denies diarrhea, Denies nausea, Denies vomiting - Genitourinary (Female) Genitourinary: Reports kidney stones, Denies dysuria, Denies hematuria - Menstruation Menstruation: Reports postmenopausal - Musculoskeletal Musculoskeletal: Denies myalgias - Integumentary Comment: follow with dermatology Integumentary: Reports pruritus, Denies rash - Neurological Neurological: Denies numbness, Denies weakness - Psychiatric Psychiatric: Reports anxiety, Denies depression - Endocrine Endocrine: Denies fatigue, Denies weight change - Hematologic/Lymphatic Comment: none - Allergic/Immunologic Allergic/Immunologic: Reports seasonal allergies Past Medical History Past Medical History: Hypertension Additional Past Medical History / Comment(s): Seasonal allergies and history of kidney stone in the past. 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 History of Any Multi-Drug Resistant Organisms: None Reported Past Surgical History: Cholecystectomy, Uterine Ablation Additional Past Surgical History / Comment(s): Endometrial ablation 2015. Colonoscopy 2018(next 5 yrs). Past Anesthesia/Blood Transfusion Reactions: No Reported Reaction Past Psychological History: No Psychological Hx Reported Smoking Status: Never smoker Past Alcohol Use History: None Reported Past Drug Use History: None Reported - Past Family History Father Family Medical History: Cancer Additional Family Medical History / Comment(s): Bladder cancer and basal cell skin cancer. Son(s) Family Medical History: Cancer Additional Family Medical History / Comment(s): Lymphoma. Medications and Allergies Home Medications Medication Instructions Recorded Confirmed Type ALPRAZolam [Xanax] 0.25 mg PO HS PRN 09/16/18 12/06/22 History Olmesartan [Benicar] 20 mg PO HS 09/16/18 12/06/22 History Fluticasone Nasal [place] [Flonase 2 spr EA NOSTRIL DAILY 06/20/20 12/06/22 History Nasal [place]] Loratadine [Claritin] 10 mg PO DAILY 06/20/20 12/06/22 History Cholecalciferol [Vitamin D3 (25 25 mcg PO DAILY 11/13/22 12/06/22 History Mcg = 1000 Iu)] amLODIPine [Norvasc] 2.5 mg PO DAILY 11/13/22 12/06/22 History Allergies Allergy/AdvReac Type Severity Reaction Status Date / Time Sulfa (Sulfonamide AdvReac Severe hives Verified 12/06/22 08:46 Antibiotics) Objective - Vital Signs Vital signs: Vital Signs Temp 97.9 F 04/02/23 08:10 Pulse 80 04/02/23 08:10 Resp 17 04/02/23 08:10 BP 166/85 04/02/23 08:10 Pulse Ox 97 04/02/23 08:10 FiO2 Intake & Output 04/01/23 04/02/23 04/02/23 18:59 06:59 18:59 Weight 95.254 kg - Constitutional General appearance: Present: cooperative - EENT Eyes: Present: EOMI ENT: Present: hearing grossly normal - Neck Neck: Present: normal ROM - Respiratory Respiratory: bilateral: CTA - Cardiovascular Rhythm: regular Heart sounds: normal: S1, S2 - Gastrointestinal General gastrointestinal: Present: soft - Integumentary Integumentary: Present: normal turgor - Musculoskeletal Musculoskeletal: Present: gait normal - Psychiatric Psychiatric: Present: A&O x's 3, appropriate affect, intact judgment & insight - Additional findings Additional findings: Breast Exam: BRA: 42D inspection: Bilateral grade 2/3 ptosis Palpation: Right breast: Multi-positional exam fibrocystic changes no dominant masses or nodules of concern Right axilla: No adenopathy of concern Left breast: Multi-positional exam, fibrocystic changes, no dominant masses or nodules of concern, biopsy site clean and dry no evidence of infection Left breast slightly larger than right breast Left axilla: No adenopathy of concern Assessment and Plan Assessment: Impression: Radiographic abnormality left breast status post area biopsy benign and concordant Fibrocystic breast changes Hypertension Plan: Repeat bilateral mammogram in 6 months with a physician exam at that time Patient to follow up sooner any questions or concerns CC: Dr. Tesfaye Additional CC's: Antonio Tesfaye
== END ==
LOC: WWCWWP 08:03
PROVIDERS: ATTEND Surgery
DX: N60.11 Diffuse cystic mastopathy of right breast (principal); I10 Essential (primary) hypertension; Z88.2 Allergy status to sulfonamides; Z79.899 Other long term (current) drug therapy

== ENCOUNTER → 2023-11-17 | Outpatient (CLI) | payer BC ==
--- NOTE | 2023-11-18 09:09 | MM ---
Reason for Exam: Screening (asymptomatic). Last screening mammogram was performed 12 month(s) ago. Patient History: Menarche at age 11. First Full-Term at age 25. Postmenopausal. Hormonal Contraceptives for 8 years from age 22 until age 30. 11/28/2022, Benign MG stereo VAD BX LT on the left side. Risk Values: Ya 5 year model risk: 1.9%. NCI Lifetime model risk: 10.9%. Prior Study Comparison: 11/13/2022 Bilateral MG 3D screening mammo w/cad, [facility]. 11/19/2022 Left MG 3D work up w/cad LT, [facility]. 03/31/2023 Left MG 3D diag mammo w/cad LT, [facility]. Tissue Density: The breasts are almost entirely fatty. Findings: Analyzed By CAD. There is no suspicious group of microcalcifications or new suspicious mass in either breast. Overall Assessment: Benign, BI-RAD 2 Management: Screening Mammogram of both breasts in 1 year. . Patient should continue monthly self-breast exams. A clinical breast exam by your physician is recommended on an annual basis. This exam should not preclude additional follow-up of suspicious palpable abnormalities. Note on Ya scores and lifetime risk: 1. A Ya score greater than 3% is considered moderate risk. If this is the case, consider specialist referral to assess eligibility for a risk reducing agent. 2. If overall lifetime risk for the development of breast cancer is 20% or higher, the patient may qualify for future screening with alternating mammogram and breast MRI. Electronically signed and approved by: Rodrigo Mariscal M.D. Radiologis
== END | disposition home or self-care (01) ==
LOC: RADMAMWWP 09:13
PROVIDERS: ATTEND Surgery
DX: Z12.31 Encounter for screening mammogram for malignant neoplasm of breast (principal); Z78.0 Asymptomatic menopausal state
CPT/HCPCS: 77063; 77067

== ENCOUNTER → 2023-11-21 | Outpatient (CLI) | payer BC ==
--- NOTE | 2023-11-21 10:17 | P.PN ---
Subjective Progress Note Date: 11/21/23 11-21-23 fibrocystic breast changes Steffi is a 58 year old white female status post left breast stero biopsy on 11-28-22. Her results were benign and concordant. Reviewed personally with Dr. Mon at that time. This was the result of a bilateral mammogram done on 11-13-22. She had 2 areas of calcification the more posterior was more prominent than last year and this is the area that was biopsied. Nothing of concern was noted in the right breast. The patient herself did not feel any lumps masses or nodules of concern in either breast. Nothing of concern was identified in the right breast. Had not had any surgery on her breast in the past prior to this. She had not had any recent trauma or infection of the breast. She was not complaining of any skin changes or nipple discharge. Plan repeat left breast diagnostic mammogram on [id number] this was benign BIRAD 2. Bilateral mammogram 11-17-23 BIRAD 2 personally interrupted She is not complaining of any new lumps masses or nodules of concern in either breast. Caffeine:none nicotine: none, her patents smoked until she was a teen chocolate: daily Family History: father: bladder cancer son: lymphoma is now cancer free Hormonal History: menarche: 11 , breast fed: yes, age at first : 25 menopause: 55 hormones: none BCP: used until 30 about 8 years Surgical History: gallbladder kidney stone Medical History: HTN Social History: nicotine: as above alcohol: none drugs: none - Constitutional Constitutional: Denies chills, Denies fever - EENT Eyes: denies blurred vision, denies pain Ears: deny: decreased hearing, tinnitus Ears, nose, mouth and throat: Denies headache, Denies sore throat - Breasts Breasts: bilateral: as per HPI - Cardiovascular Cardiovascular: Denies chest pain, Denies shortness of breath - Respiratory Respiratory: Denies cough - Gastrointestinal Gastrointestinal: Denies abdominal pain, Denies diarrhea, Denies nausea, Denies vomiting - Genitourinary (Female) Genitourinary: Reports kidney stones, Denies dysuria, Denies hematuria - Menstruation Menstruation: Reports postmenopausal - Musculoskeletal Musculoskeletal: Denies myalgias - Integumentary Comment: follow with dermatology Integumentary: Reports pruritus, Denies rash - Neurological Neurological: Denies numbness, Denies weakness - Psychiatric Psychiatric: Reports anxiety, Denies depression - Endocrine Endocrine: Denies fatigue, Denies weight change - Hematologic/Lymphatic Comment: none - Allergic/Immunologic Allergic/Immunologic: Reports seasonal allergies Past Medical History Past Medical History: Hypertension Additional Past Medical History / Comment(s): Seasonal allergies and history of kidney stone in the past. 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 History of Any Multi-Drug Resistant Organisms: None Reported Past Surgical History: Cholecystectomy, Uterine Ablation Additional Past Surgical History / Comment(s): Endometrial ablation 2015. Colonoscopy 2018(next 5 yrs). Past Anesthesia/Blood Transfusion Reactions: No Reported Reaction Past Psychological History: No Psychological Hx Reported Smoking Status: Never smoker Past Alcohol Use History: None Reported Past Drug Use History: None Reported - Past Family History Father Family Medical History: Cancer Additional Family Medical History / Comment(s): Bladder cancer and basal cell skin cancer. Son(s) Family Medical History: Cancer Additional Family Medical History / Comment(s): Lymphoma. Medications and Allergies Home Medications Medication Instructions Recorded Confirmed Type ALPRAZolam [Xanax] 0.25 mg PO HS PRN 09/16/18 12/06/22 History Olmesartan [Benicar] 20 mg PO HS 09/16/18 12/06/22 History Fluticasone Nasal [place] [Flonase 2 spr EA NOSTRIL DAILY 06/20/20 12/06/22 History Nasal [place]] Loratadine [Claritin] 10 mg PO DAILY 06/20/20 12/06/22 History Cholecalciferol [Vitamin D3 (25 25 mcg PO DAILY 11/13/22 12/06/22 History Mcg = 1000 Iu)] amLODIPine [Norvasc] 2.5 mg PO DAILY 11/13/22 12/06/22 History Allergies Allergy/AdvReac Type Severity Reaction Status Date / Time Sulfa (Sulfonamide AdvReac Severe hives Verified 12/06/22 08:46 Antibiotics) Objective - Constitutional General appearance: Present: cooperative - EENT Eyes: Present: EOMI ENT: Present: hearing grossly normal - Neck Neck: Present: normal ROM - Respiratory Respiratory: bilateral: CTA - Cardiovascular Heart sounds: normal: S1, S2 - Integumentary Integumentary: Present: normal turgor - Musculoskeletal Musculoskeletal: Present: gait normal - Psychiatric Psychiatric: Present: A&O x's 3, appropriate affect, intact judgment & insight - Additional findings Additional findings: Breast Exam: BRA: 42D inspection: Bilateral grade 2/3 ptosis Palpation: Right breast: Multi-positional exam fibrocystic changes no dominant masses or nodules of concern Right axilla: No adenopathy of concern Left breast: Multi-positional exam, fibrocystic changes, no dominant masses or nodules of concern Left breast slightly larger than right breast Left axilla: No adenopathy of concern Assessment and Plan Assessment: Impression: Radiographic abnormality left breast status post area biopsy benign and concordant; 11-28-22 Fibrocystic breast changes Hypertension bilateral mammogram 11-17-23 BIRAD 2 Plan: Repeat bilateral mammogram in 1 year with exam at that time Patient to follow up sooner any questions or concerns CC: Dr. Tesfaye Additional CC's: Antonio Tesfaye
[2023-11-21 11:28] VITALS: BP 175/100; PULSE 96; RESP 17; TEMP 97.8
== END ==
LOC: WWCWWP 09:42
PROVIDERS: ATTEND Surgery
DX: R92.8 Other abnormal and inconclusive findings on diagnostic imaging of breast (principal); N60.11 Diffuse cystic mastopathy of right breast; N60.12 Diffuse cystic mastopathy of left breast; I10 Essential (primary) hypertension; R92.1 Mammographic calcification found on diagnostic imaging of breast; Z87.891 Personal history of nicotine dependence; Z88.2 Allergy status to sulfonamides; Z79.899 Other long term (current) drug therapy

== ENCOUNTER → 2024-05-12 | Outpatient (CLI) | payer BC ==
[2024-05-12 09:39] VITALS: BP 185/112; PULSE 88; RESP 17; TEMP 98.1
--- NOTE | 2024-05-12 10:10 | P.HPOB ---
History of Present Illness H&P Date: 05/12/24 Chief Complaint: The patient is here for routine gynecologic exam. This is a 58-year-old G3, P3 with an LMP of 2019. Patient is without gynecologic complaints and denies any postmenopausal bleeding. Review of Systems The patient states she has lost 5 pounds over the last year. She denies respiratory, cardiac, or G.I. problems. Past Medical History Past Medical History: Hypertension Additional Past Medical History / Comment(s): Seasonal allergies and history of kidney stone in the past. Rosacea involving the eye. 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 History of Any Multi-Drug Resistant Organisms: None Reported Past Surgical History: Cholecystectomy, Uterine Ablation Additional Past Surgical History / Comment(s): Endometrial ablation 2014. Colonoscopy 2023(next after 10 yrs). Past Anesthesia/Blood Transfusion Reactions: No Reported Reaction Past Psychological History: No Psychological Hx Reported Smoking Status: Never smoker Past Alcohol Use History: None Reported Past Drug Use History: None Reported Additional History: She has been since 1987. 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 - Past Family History Father Family Medical History: Cancer, Hypertension Additional Family Medical History / Comment(s): Bladder cancer and basal cell skin cancer. Son(s) Family Medical History: Cancer Additional Family Medical History / Comment(s): Lymphoma. Mother Family Medical History: Hypertension Medications and Allergies Home Medications Medication Instructions Recorded Confirmed Type ALPRAZolam [Xanax] 0.25 mg PO HS PRN 09/16/18 11/21/23 History Olmesartan [Benicar] 20 mg PO HS 09/16/18 11/21/23 History Fluticasone Nasal [place] [Flonase 2 spr EA NOSTRIL DAILY 06/20/20 11/21/23 History Nasal [place]] Loratadine [Claritin] 10 mg PO DAILY 06/20/20 11/21/23 History Cholecalciferol [Vitamin D3 (25 25 mcg PO DAILY 11/13/22 11/21/23 History Mcg = 1000 Iu)] amLODIPine [Norvasc] 2.5 mg PO DAILY 11/13/22 11/21/23 History Allergies Allergy/AdvReac Type Severity Reaction Status Date / Time Sulfa (Sulfonamide AdvReac Severe hives Verified 05/12/24 09:32 Antibiotics) Exam Vital Signs Temp Pulse Resp BP Pulse Ox 05/12/24 09:35 98.1 F 88 17 185/112 97 Intake and Output 05/11/24 05/12/24 05/12/24 22:59 06:59 14:59 Other: Weight 81.647 kg 5 feet 4 inches, weight 180 pounds, BMI 30.9. Initial blood pressure was 185/112 repeat blood pressure was 164/100. This is a well-developed well-nourished 8 female who is alert and oriented times 3 in no acute distress. HEENT: Within normal limits. NECK: Supple without mass or thyromegaly. CHEST AND LUNGS: Clear to auscultation. HEART: Regular rate and rhythm. BREASTS: Are without mass or discharge. AXILLARY EXAM: Negative for adenopathy. BACK: Negative for CVA tenderness. ABDOMEN: Soft, nontender, without palpable masses. PELVIC EXAM: Normal external genitalia with mild atrophy. Cervix and vagina appear normal with mild atrophy. There is no unusual discharge. There is no evidence of prolapse. The uterus is midposition, nongravid size and nontender. There are no palpable adnexal masses or tenderness. RECTAL EXAM: Rectovaginal exam is negative for mass or tenderness and is neg ative for occult blood. EXTREMITIES: Nontender. IMPRESSION: 1. 58-year-old menopausal female with normal gynecologic exam. 2. Elevated blood pressure with history of chronic hypertension. PLAN: 1. Pap smear was deferred since she had a negative Pap smear cotest on 06/20/2020. 2. Self breast awareness was discussed with the patient. We have also discussed symptoms associated with inflammatory breast cancer. 3. Screening mammogram will be due in November 2024. She states she does the mammograms through Dr. Davi Reeves who has been seeing her since her biopsy in 2022 and her history of fibrocystic changes. 4. Osteoporosis prevention was discussed. I have stressed the importance of adequate calcium, vitamin D and regular exercise. Recommended amounts of calcium and vitamin D were also discussed. 5. We have discussed her elevated blood pressure. She continues to take blood pressures at home and states they are typically in the 130s over 80s. She will continue to check her own blood pressures on a regular basis, but follow-up with her PCP for blood pressure elevations and she will let her PCP know what her blood pressure was today. 6. She was advised to return in one year for her annual well woman exam.
== END ==
LOC: WWCWWP 09:15
PROVIDERS: ATTEND Obstetrics & Gynecology
DX: Z01.419 Encounter for gynecological examination (general) (routine) without abnormal findings (principal); I10 Essential (primary) hypertension; Z78.0 Asymptomatic menopausal state; Z88.2 Allergy status to sulfonamides; Z79.899 Other long term (current) drug therapy

== ENCOUNTER → 2024-11-17 | Outpatient (CLI) | payer BC ==
--- NOTE | 2024-11-17 09:55 | MM ---
Reason for Exam: Screening (asymptomatic). Last screening mammogram was performed 12 month(s) ago. Patient History: Menarche at age 11. First Full-Term at age 25. Postmenopausal. Patient has history of breast feeding. Hormonal Contraceptives for 8 years from age 22 until age 30. 11/28/2022, Benign MG stereo VAD BX LT on the left side. Maternal aunt (gr) had breast cancer. Risk Values: Ya 5 year model risk: 2.0%. NCI Lifetime model risk: 10.7%. Prior Study Comparison: 07/23/2017 Bilateral Screening Mammogram, [facility]. 09/16/2018 Bilateral Screening Mammogram, [facility]. 06/20/2020 Bilateral Screening Mammogram, [facility]. 09/19/2021 Bilateral Screening Mammogram, [facility]. 09/21/2021 Left Diagnostic Mammogram, [facility]. 11/13/2022 Bilateral MG 3D screening mammo w/cad, [facility]. 11/19/2022 Left MG 3D work up w/cad LT, [facility]. 03/31/2023 Left MG 3D diag mammo w/cad LT, [facility]. 11/17/2023 Bilateral MG 3D screening mammo w/cad, [facility]. Tissue Density: There are scattered areas of fibroglandular density. Findings: Analyzed By CAD. Persistent mammotome biopsy clip just posterior to stable group of small benign-appearing round calcifications in the left breast upper outer quadrant. There is no suspicious group of microcalcifications or new suspicious mass in either breast. Overall Assessment: Benign, BI-RAD 2 Management: Screening Mammogram of both breasts in 1 year. . Patient should continue monthly self-breast exams. A clinical breast exam by your physician is recommended on an annual basis. This exam should not preclude additional follow-up of suspicious palpable abnormalities. Note on Ya scores and lifetime risk: 1. A Ya score greater than 3% is considered moderate risk. If this is the case, consider specialist referral to assess eligibility for a risk reducing agent. 2. If overall lifetime risk for the development of breast cancer is 20% or higher, the patient may qualify for future screening with alternating mammogram and breast MRI. [facility], , 11/17/2024 9:52 AM. Electronically signed and approved by: Jasiel Mon M.D.
== END | disposition home or self-care (01) ==
LOC: RADMAMWWP 09:18
PROVIDERS: ATTEND Surgery
DX: Z12.31 Encounter for screening mammogram for malignant neoplasm of breast (principal); R92.323 Mammographic fibroglandular density, bilateral breasts; Z80.3 Family history of malignant neoplasm of breast; Z78.0 Asymptomatic menopausal state; Z92.0 Personal history of contraception
CPT/HCPCS: 77063; 77067